=== PATIENT | male | born 1995 | race Caucasian/White ===

== ENCOUNTER 2017-08-28 14:32 | Inpatient (IN) | payer BC, OTHER ==
[~2017-08-28] VITALS: Ht 180.3 cm; Wt 131.5 kg
--- NOTE | 2017-08-28 16:31 | NUR ---
Intake assessment; Patient is a 22 year old male, AOX4, presented to [facility] to detoxify from ETOH and methamphetamine. Patient appears to be very anxious, flushed and agitated. Admitting vital signs are as follows; BP 159/107, HR 98, Temperature 97.8, respirations 20 and SPo2 of 98% on room air. Educated patient regarding unit protocols and policies, patient verbalized understanding. MD was notified regarding patient's vital signs. MD to evaluate patient.
[2017-08-28] MEDS ORDERED: LISI-603 PO (16:48)
[2017-08-28] MEDS ORDERED: FLUO-120 PO (16:48)
[2017-08-28 17:32] LABS: *AMPHETAMINE, URINE NEGATIVE (NEGATIVE); *BARBITURATE, URINE NEGATIVE (NEGATIVE); *CANNABINOID, URINE NEGATIVE (NEGATIVE); *COCCAINE, URINE NEGATIVE (NEGATIVE); *OPIATE, URINE NEGATIVE (NEGATIVE); *PHENCYCLIDINE SCREEN,URINE NEGATIVE (NEGATIVE)
[2017-08-28] MEDS ORDERED: DICYCLOMINE HCL 20 MG TABLET PO PRN (17:45)
[2017-08-28] MEDS ORDERED: MAG HYDROX/AL HYDROX/SIMETH 30 ML LIQUID UDC PO PRN (17:45)
[2017-08-28] MEDS ORDERED: hydrALAZINE HCL 50 MG TABLET PO PRN (17:45)
[2017-08-28] MEDS ORDERED: IBUPROFEN 400 MG TABLET PO PRN (17:45)
[2017-08-28] MEDS ORDERED: THIAMINE HCL 200 MG/2 ML VIAL IM ONE (17:45)
[2017-08-28] MEDS ORDERED: MAGNESIUM HYDROXIDE 30 ML LIQUID UDC PO PRN (17:45)
[2017-08-28] MEDS ORDERED: LORAZEPAM 2 MG/1 ML VIAL IM PRN (17:45)
[2017-08-28] MEDS ORDERED: LORAZEPAM 1 MG TABLET PO PRN ×2 (17:45)
[2017-08-28] MEDS ORDERED: LOPERAMIDE HCL 2 MG CAPSULE PO PRN ×2 (17:45)
[2017-08-28] MEDS ORDERED: MIRALAX 17 GM POWD.PACK PO PRN (17:45)
[2017-08-28] MEDS ORDERED: ACETAMINOPHEN 325 MG TABLET PO PRN (17:45)
[2017-08-28] MEDS ORDERED: HYDROXYZINE PAMOATE 25 MG CAPSULE PO ONE (18:00)
[2017-08-28] MEDS ORDERED: LISINOPRIL 10 MG TABLET PO ONE (18:00)
--- NOTE | 2017-08-28 18:36 | NUR ---
Admission note; Patient is a 22 year old male, AOX4, presented to [facility] to detoxify from ETOH and methamphetamine. Patient denies any allergies or history of seizures. Patient appears to be very anxious, flushed and agitated. Admitting vital signs are as follows; BP 159/107, HR 98, Temperature 97.8, respirations 20 and SPo2 of 98% on room air. Patient has never been to detox treatment before. Educated patient regarding unit protocols and policies, patient verbalized understanding. Discussed substance use history. Patient started drinking when he was 16 years old. Patient reported that for the past 2 years he has been drinking beer/mixed drinks on a daily basis, unable to specify exact amount of alcohol consumption. Last consumed 2 hours prior to admission, 8 bottles of beer. Patient also reported using Methamphetamine on an intermittent basis only, unable to specify amount of methamphetamine used. Discussed medical and psychiatric history. Patient reported history of hypertension but patient has been non compliant with medication regime, patient has a prescription of Lisinopril 20mg PO daily. Patient also reported history of anxiety and gall bladder removal last month. Patient's primary care physician is Dr. Jazmyne Patterson. Skin check done , no open wounds noted, old scabs noted on patients bilateral foot, sites intact. Patient was seen and evaluated by MD at intake office. Oriented patient to unit by BILLING MACHINE OPERATOR. All safety measures secured. Will continue to monitor patient.
--- NOTE | 2017-08-28 18:41 | NUR ---
End of shift note; Patient is AOX4. Patient received Vitamin B1 IM, Prinivil 10mg PO one time dose for high BP 150/107 and Vistaril 25mg PO one time dose for anxiety. Patient remained compliant with treatment plan and medication regime. All safety measures secured. Met all needs. Addendum: 08/28/17 at 1845 by MARCI DUMONT LVN Admitting CIWA is 3.
--- NOTE | 2017-08-28 19:15 | NUR ---
Start of Shift Note: Patient is a 22 y.o male admitted today for ETOH dependence. Patient reported drinking unspecified amount of ETOH for 2 years and Meth intermittently in an unspecified amount . Patient has PMHx of Anxiety & Hypertension. No seizure history noted. Patient is on a regular diet with no known food and drug allergies. Full Code status. Closed scabs noted on both foot. Patient placed on a modified Ativan taper to be started tonight. No PRn medications given during day shift. Last CIWA 3. Patient is alert & oriented x4. Educated patient regarding plan of care for the night. Encourage pt to increase fluid intake. Safety precaution in place. Bed locked in lowest position. Both side rails up. Call light within pt's reach. Will continue to monitor patient.
[2017-08-28] MEDS: LORAZEPAM 1 MG TABLET PO SCH ×2 (19:37→22:10)
--- NOTE | 2017-08-28 19:39 | NUR ---
PRN Ativan & Motrin Patient presented with moderate anxiety, agitation, sweating, & moderate severe headache. Patient noted with fine tremors. No hallucinations noted. Vitals taken B/P 143/97, MO 104 O2Sat 96%. CIWA 16 noted. Pt medicated with PRN Ativan 2mg and Motrin 400mg as ordered. Will monitor for effectiveness of medication.
[2017-08-28 20:00] VITALS: BP 143/97
--- NOTE | 2017-08-28 20:39 | NUR ---
PRN Reassessment Patient noted with decreased sweating, anxiety and agitation. Pt verbalized slight relief in headache. CIWA 10 noted at this time. Will continue to monitor patient.
[2017-08-28 21:10] LABS: BASOPHILS % (AUTO) 0.5 % (0.0-2.0); EOSINOPHILS % (AUTO) 0.5 % (0.0-7.0); HEMATOCRIT 47.1 % (36.7-47.1); HEMOGLOBIN 16.3 g/dL (12.5-16.3); LYMPHOCYTES # (AUTO) 2.1 K/uL (20.0-40.0); LYMPHOCYTES % (AUTO) 25.4 % (20.5-51.5); MEAN CORPUSCULAR HEMOGLOBIN 29.6 uug (23.8-33.4); MEAN CORPUSCULAR HGB CONC 35 g/dL (32.5-36.3); MEAN CORPUSCULAR VOLUME 85.5 fL (73.0-96.2); MONOCYTES # (AUTO) 0.3 K/uL (2.0-10.0); MONOCYTES % (AUTO) 4.2 % (0.0-11.0); NEUTROPHILS # (AUTO) 5.8 K/uL (1.8-8.9); NEUTROPHILS % (AUTO) 69.4 % (38.5-71.5); PLATELET COUNT (AUTO) 238 K/uL (152-348); WHITE BLOOD COUNT (AUTO) 8.3 K/uL (3.6-10.2)
[2017-08-28 21:15] LABS: BILIRUBIN,TOTAL 0.3 mg/dL (0.2-1.0); CREATININE 0.9 mg/dL (0.6-1.3); MAGNESIUM 1.4 mg/dL (1.8-2.4); POTASSIUM 3.2 mmol/L (3.5-5.1)
[2017-08-28] MEDS ORDERED: POTASSIUM CHLORIDE 20 MEQ TAB.PRT.SR PO ONE (21:30)
[2017-08-28] MEDS ORDERED: MAGNESIUM OXIDE 400 MG TABLET PO ONE (21:30)
[2017-08-29] VITALS (8 sets, daily range): BP systolic 128–144; BP diastolic 78–97
--- NOTE | 2017-08-29 07:02 | NUR ---
End of Shift Note: Patient is a 22 y.o male admitted today for ETOH dependence. Patient has PMHx of Anxiety & Hypertension. No seizure history noted. Patient is on a regular diet with no known food and drug allergies. Full Code status. Closed scabs noted on both foot. Patient started on a modified Ativan taper and tolerating well. No adverse reaction noted. Last CIWA 5. Pt received PRN Ativan 2mg and Motrin and were effective. Pt also received a one time dose of K-dur 40mEQ and Mag Ox 800mg as replacement for K levels of 3.2 and Mg level of 1.4. Closely monitored symptoms of withdrawal. Vitals monitored closely and noted within normal limits. Patient is compliant with medications. Patient remained stable. Patient shows no s/s of distress. Patient slept for a total of 8 hour. Fluid intake 500ml. Encourage pt to increase fluid intake. Voided 1x with no bowel movement. All needs attended & met. Safety measures in place. Will continue to monitor patient.
--- NOTE | 2017-08-29 08:10 | NUR ---
START OF SHIFT NOTE Received report from night nurse, 22 year old male admitted today for ETOH dependence. Patient has PMH of Anxiety & Hypertension. Patient cont with modify Ativan taper. Per endorsement pt was given PRN Motrin/Ativan noted to be effective, last CIWA-5,slept for 8 hours. Patient received awake, alert and oriented x4. Patient was educated regarding plan of care for the day and medication regimen. Safety measures in place. Call light with in reach. Will continue to monitor.
[2017-08-29] MEDS: THIAMINE HCL 100 MG TABLET PO SCH (08:44)
[2017-08-29] MEDS: MULTIVITAMINS,THERAPEUTIC TABLET PO SCH (08:44)
[2017-08-29] MEDS: LORAZEPAM 1 MG TABLET PO SCH ×4 (08:44→20:20)
[2017-08-29] MEDS: LISINOPRIL 20 MG TABLET PO SCH (08:44)
[2017-08-29] MEDS: FOLIC ACID 1 MG TABLET PO SCH (08:44)
[2017-08-29] MEDS ORDERED: TUBERCULIN,PURIF.PROT.DERIV. 5 TU/0.1 ML TEST ID ONE (09:00)
--- NOTE | 2017-08-29 19:05 | NUR ---
END OF SHIFT NOTE Gave report to night nurse, 22 year old male patient started on a 5 day Ativan taper and is tolerating well. Pt remains A/O x4. No acute distress noted throughout shift. S/S of acute withdrawal are managed by ordered medications. Patient remains safe throughout shift. No PRN medications needed or administered throughout shift. Most recent CIWA is 4@ 1600. All needs are attended. Pt endorsed to night nurse in stable condition.
--- NOTE | 2017-08-29 19:50 | NUR ---
START OF SHIFT Received report from day shift nurse. Pt attended a group meeting and returned to his room after. He is a 22 yo male admitted to [facility] on 08/28 for ETOH dependence. He is A&O and ambulatory. NKA, full code status, and on a regular diet. PMH of HTN and anxiety. On admission he reported drinking ETOH unspecified amounts for the past 2 years and using methamphetamine unspecified amounts intermittently for the past 6 years. 5-Day Ativan taper started today. He is anxious with moist skin, facial flushing, and mild tremors. He reports difficulty sleeping. Taper due tonight. Fall and seizure precautions in place. Bed is down with call light in reach.
[2017-08-29] MEDS: CLONIDINE HCL 0.1 MG TABLET PO PRN (22:48)
[2017-08-29] MEDS: diphenhydrAMINE 50 MG CAPSULE PO PRN (22:48)
--- NOTE | 2017-08-29 22:49 | NUR ---
PRN Clonidine and Benadryl Pt reports feeling anxious, restless, and unable to sleep. His skin is moist from sweat. B/P 134/92 and HR 105. PRN Clonidine and Benadryl administered.
--- NOTE | 2017-08-29 23:50 | NUR ---
PRN Clonidine and Benadryl reassessment PRN Clonidine and Benadryl effective. Pt is lying in bed resting with eyes closed. Respirations even and unlabored. B/P 128/81 and HR 85.
[2017-08-30] VITALS (7 sets, daily range): BP systolic 101–158; BP diastolic 65–110
[2017-08-30] MEDS: CLONIDINE HCL 0.1 MG TABLET PO PRN ×2 (05:39→14:32)
--- NOTE | 2017-08-30 05:40 | NUR ---
PRN Clonidine Pt's B/P is 146/92. He is lying in bed resting with eyes closed. Respirations even and unlabored. PRN Clonidine administered.
[2017-08-30 07:08] LABS: HEPATITIS B SURFACE AG Negative (Negative)
--- NOTE | 2017-08-30 07:24 | NUR ---
END OF SHIFT Report provided to day shift nurse. Pt is lying in bed resting. He is a 22 yo male admitted to [facility] on 08/28 for ETOH dependence. He is A&O and ambulatory. NKA, full code status, and on a regular diet. PMH of HTN and anxiety. On admission he reported drinking ETOH unspecified amounts for the past 2 years and using methamphetamine unspecified amounts intermittently for the past 6 years. 5-Day Ativan taper started 08/29. Pt's B/P was elevated. PRN Clonidine x2 and Benadryl administered. Endorsed to day shift for second Clonidine reassessment. Last CIWA was 5. He drank 591mL and slept for 6 hours. Fall and seizure precautions in place. Bed is down with call light in reach.
--- NOTE | 2017-08-30 08:10 | NUR ---
START OF SHIFT: RECEIVED PT A/O X 4. HE PRESENTS WITH GUARDED AFFECT AND ANXIOUS MOOD. HE REPORTS FEELING ANXIOUS AND SHAKY. FINE TREMORS NOTED. CIWA 6. ATIVAN TAPER IN PROGRESS TO MANAGE S/S OF W/D. ENCOURAGED INCREASED FLUIDS TO ASSIST IN FACILITATING DETOX PROCESS. WILL CONTINUE TO MONITOR.
[2017-08-30 08:25] LABS: BILIRUBIN,DIRECT 0.2 mg/dL (0.0-0.2); BILIRUBIN,TOTAL 0.9 mg/dL (0.2-1.0); CREATININE 0.8 mg/dL (0.6-1.3); POTASSIUM 4.2 mmol/L (3.5-5.1); TOTAL PROTEIN, SERUM 6.8 g/dL (6.4-8.2)
[2017-08-30] MEDS: MULTIVITAMINS,THERAPEUTIC TABLET PO SCH (08:44)
[2017-08-30] MEDS: FLUOXETINE HCL 20 MG CAPSULE PO SCH (08:45)
[2017-08-30] MEDS: LORAZEPAM 1 MG TABLET PO SCH ×3 (08:45→20:29)
[2017-08-30] MEDS: THIAMINE HCL 100 MG TABLET PO SCH (08:45)
[2017-08-30] MEDS: FOLIC ACID 1 MG TABLET PO SCH (08:45)
[2017-08-30] MEDS: LISINOPRIL 20 MG TABLET PO SCH (08:45)
--- NOTE | 2017-08-30 13:55 | NUR ---
BP ELEVATED. PT IS ASYMPTOMATIC. PRN CLONIDINE GIVEN.WILL MONITOR EFFECTIVENESS OF PRN MED.
--- NOTE | 2017-08-30 14:55 | NUR ---
CLONIDINE EFFECTIVE. BP 145/94 P 95
--- NOTE | 2017-08-30 18:59 | NUR ---
END OF SHIFT: PT CONTINUES ON ATIVAN TAPER TO MANAGE S/S OF W/D. HE ISOLATED IN ROOM AND SLEPT ON AND OFF MOST OF SHIFT. HE REPORTED FEELING ANXIOUS INTERMITTENTLY. LAST CIWA 5. BP BECAME ELEVATED THIS AFTERNOON. PRN CLONIDINE GIVEN AND EFFECTIVE. PT WAS COMPLIANT WITH INCREASED FLUIDS. WILL PASS SHIFT REPORT TO ONCOMING NIGHT NURSE.
--- NOTE | 2017-08-30 20:00 | NUR ---
Start of Shift Pt is a 22 year old male admitted for ETOH dependence, placed on modified Ativan taper. Pt reported consuming unspecified amount and methamphetamine unspecified amount. PMH: HTN and anxiety. NKA, regular diet, fall/seizure precautions and full code. Upon assessment, pt reports feeling anxious, reports chills with hot/cold throughout body, skin is flushed and noted with moderate sweat, respirations even/unlabored, denies SOB/chest pain, denies n/v/d, medications due, safety measures in place, call light within reach, side rails up x2, bed locked and in low position. Will continue to monitor.
[2017-08-30] MEDS: diphenhydrAMINE 50 MG CAPSULE PO PRN (23:58)
--- NOTE | 2017-08-30 23:58 | NUR ---
PRN Administration Pt requested sleep aid. Benadryl 50mg PRN administered. Safety measures in place, will continue to monitor.
[2017-08-31] VITALS: BP 140/86
--- NOTE | 2017-08-31 00:58 | NUR ---
PRN Reassessment Upon reassessment, pt is sleeping, respirations even/unlabored. Safety measures in place, will continue to monitor.
--- NOTE | 2017-08-31 04:00 | NUR ---
CINDYWA deferred d/t pt sleeping, to assess while pt is awake as ordered. Pt refused to be woken up for 0[address], will continue to monitor.
--- NOTE | 2017-08-31 07:00 | NUR ---
End of Shift Pt is a 22 year old male admitted for ETOH dependence, placed on modified Ativan taper. Pt reported consuming unspecified amount and methamphetamine unspecified amount. PMH: HTN and anxiety. NKA, regular diet, fall/seizure precautions and full code. During shift, pt reported feeling anxious, reports chills with hot/cold throughout body, skin is flushed and noted with moderate sweat scheduled taper medications administered, effective in management of s/s of withdrawal, CIWA 5. Benadryl 50mg PRN administered for sleep. Pt slept for 7 hours, intake of 605 ml PO, voids x2 and stool x0. Safety measures in place, call light within reach, side rails up x2, bed locked and in low position. Endorsed to day shift nurse.
[2017-08-31 07:30] VITALS: BP 155/97
[2017-08-31 07:34] VITALS: BP 140/86
--- NOTE | 2017-08-31 08:00 | NUR ---
START OF SHIFT: RECEIVED PT A/O X 4. HE PRESENTS WITH GUARDED AFFECT AND ANXIOUS MOOD. HE REPORTS FEELING ANXIOUS. CIWA 4 , ATIVAN TAPER IN PROGRESS TO MANAGE S/S OF W/D. ENCOURAGED INCREASED FLUIDS TO ASSIST IN FACILITATING DETOX PROCESS. PT STATES THAT HE WOULD LIKE TO ATTEND GROUP TODAY AND THAT IT REALLY HELPED HIM YESTERDAY WILL CONTINUE TO MONITOR.
[2017-08-31] MEDS: LISINOPRIL 20 MG TABLET PO SCH (08:45)
[2017-08-31] MEDS: LORAZEPAM 1 MG TABLET PO SCH ×3 (08:45→20:06)
[2017-08-31] MEDS: MULTIVITAMINS,THERAPEUTIC TABLET PO SCH (08:45)
[2017-08-31] MEDS: FLUOXETINE HCL 20 MG CAPSULE PO SCH (08:46)
[2017-08-31] MEDS: THIAMINE HCL 100 MG TABLET PO SCH (08:46)
[2017-08-31] MEDS: FOLIC ACID 1 MG TABLET PO SCH (09:10)
[2017-08-31 12:00] VITALS: BP 136/84
--- NOTE | 2017-08-31 14:32 | NUR ---
CLONIDINE 0.1MG @1432 clonidine 0.1mg crushed as I was removing it from package, new 0.1mg removed from pyxis and administered to patient @ 1444, crushed clonidine wasted in pyxis
[2017-08-31] MEDS: CLONIDINE HCL 0.1 MG TABLET PO SCH ×2 (14:57→20:06)
[2017-08-31 16:00] VITALS: BP 138/86
--- NOTE | 2017-08-31 18:36 | NUR ---
End of Shift Pt is a 22 year old male admitted for ETOH dependence, placed on modified Ativan taper. Pt reported consuming unspecified amount and methamphetamine unspecified amount. PMH: HTN and anxiety. NKA, regular diet, fall/seizure precautions and full code. During shift, pt reported feeling anxious, scheduled taper medications administered, effective in management of s/s of withdrawal, CIWA 6. Patient spent most of the day in bed sleeping or resting and did not join in any groups today though he said he would like to tomorrow. call light within reach, side rails up x2, bed locked and in low position.Will Endorse to night cleaner nurse Addendum: 08/31/17 at 1843 by GIA FERNANDEZ RN patient out of room to attend 1844 AA meeting
[2017-08-31 20:00] VITALS: BP 141/92
--- NOTE | 2017-08-31 20:00 | NUR ---
Start of Shift Pt is a 22 year old male admitted for ETOH dependence, placed on modified Ativan taper. Pt reported consuming unspecified amount and methamphetamine unspecified amount. PMH: HTN and anxiety. NKA, regular diet, fall/seizure precautions and full code. Upon assessment, pt reports feeling anxious and restless, hot/cold throughout body, skin is flushed, respirations even/unlabored, denies SOB/chest pain, denies n/v/d, medications due, safety measures in place, call light within reach, side rails up x2, bed locked and in low position. Will continue to monitor.
[2017-08-31] MEDS: GABAPENTIN 300 MG CAPSULE PO SCH (20:06)
[2017-09-01] VITALS: BP 123/84
[2017-09-01] MEDS: diphenhydrAMINE 50 MG CAPSULE PO PRN (01:19)
--- NOTE | 2017-09-01 01:19 | NUR ---
PRN Reassessment Pt requests sleeping aid. Benadryl 50mg PRN administered. Safety measures in place, will continue to monitor. Addendum: 09/01/17 at 0559 by LIZ WEBER RN CORRECTION: PRN ADMINISTRATION
--- NOTE | 2017-09-01 02:19 | NUR ---
Upon reassessment, pt is sleeping, respirations even/unlabored. Safety measures in place, will continue to monitor.
--- NOTE | 2017-09-01 07:00 | NUR ---
End of Shift Pt is a 22 year old male admitted for ETOH dependence, placed on modified Ativan taper. Pt reported consuming unspecified amount and methamphetamine unspecified amount. PMH: HTN and anxiety. NKA, regular diet, fall/seizure precautions and full code. During shift, pt reported feeling anxious and restless, hot/cold throughout body, skin flushed scheduled taper medications administered, effective in management of s/s of withdrawal, CIWA 5. Benadryl 50mg RPN administered for sleep. Pt slept for 5 hours, intake of 1210ml PO, voids x2 and stool x1. Safety measures in place, call light within reach, side rails up x2, bed locked and in low position. Endorsed to day shift nurse.
--- NOTE | 2017-09-01 07:30 | NUR ---
START OF SHIFT Pt 22 y/o male admitted for etoh dependence/ withdrawal. Pt received in room on bed with eyes closed resting, but easily arousable to name. Pt alert and oriented to name, place, and time. Perrla. Skin warm and slightly moist to touch. Respirations even and unlabored. Bilateral hand tremors noted slightly. It was reported that pt slept for 5 hours last night. Bed on lowest position with side rails x2 up for safety. Call light within reach. No distress noted at this time.
[2017-09-01 08:00] VITALS: BP 113/67
[2017-09-01] MEDS: CLONIDINE HCL 0.1 MG TABLET PO SCH ×3 (08:46→20:22)
[2017-09-01] MEDS: GABAPENTIN 300 MG CAPSULE PO SCH ×2 (08:46→20:21)
[2017-09-01] MEDS: FOLIC ACID 1 MG TABLET PO SCH (08:46)
[2017-09-01] MEDS: THIAMINE HCL 100 MG TABLET PO SCH (08:46)
[2017-09-01] MEDS: MULTIVITAMINS,THERAPEUTIC TABLET PO SCH (08:46)
[2017-09-01] MEDS: FLUOXETINE HCL 20 MG CAPSULE PO SCH (08:46)
[2017-09-01] MEDS: LORAZEPAM 1 MG TABLET PO SCH ×2 (08:46→20:21)
[2017-09-01] MEDS: LISINOPRIL 20 MG TABLET PO SCH (08:47)
--- NOTE | 2017-09-01 12:29 | NUR ---
THerapist prompted client to come to group. Client agreed to come to group
[2017-09-01 12:35] VITALS: BP 140/86
[2017-09-01 16:00] VITALS: BP 135/81
--- NOTE | 2017-09-01 18:42 | NUR ---
END OF SHIFT Pt 22 y/o male admitted for ETOH dependence. Pt alert and oriented to name, place, and time. Perrla. Respirations even and unlabored. Skin warm and slightly moist to touch. Bilateral hand tremors noted. Pt with episodes of anxiety this morning. Pt observed mostly in room throughout the morning. Pt attended group activity. Pt was seen by MD today. Pt medication compliant and tolerated well. No ASE noted. Bed on lowest position with side rails x2 up for safety. Call light within reach. No distress noted at this time.
[2017-09-01 20:00] VITALS: BP 127/77
--- NOTE | 2017-09-01 20:00 | NUR ---
Start of Shift Pt is a 22 year old male admitted for ETOH dependence, placed on modified Ativan taper. Pt reported consuming unspecified amount and methamphetamine unspecified amount. PMH: HTN and anxiety. NKA, regular diet, fall/seizure precautions and full code. Upon assessment, pt reports feeling anxious with mild chills throughout body, skin is flushed, respirations even/unlabored, denies SOB/chest pain, denies n/v/d, medications due, safety measures in place, call light within reach, side rails up x2, bed locked and in low position. Will continue to monitor.
[2017-09-01] MEDS ORDERED: PRAZOSIN HCL 1 MG CAPSULE PO SCH (21:00)
[2017-09-02] VITALS: BP 121/86
--- NOTE | 2017-09-02 07:00 | NUR ---
End of Shift Pt is a 22 year old male admitted for ETOH dependence, placed on modified Ativan taper. Pt reported consuming unspecified amount and methamphetamine unspecified amount. PMH: HTN and anxiety. NKA, regular diet, fall/seizure precautions and full code. During shift, pt reported feeling anxious with mild chills throughout body, skin flushed scheduled taper medications administered, CIWA 4. No PRN medications administered during shift. Pt slept for 5 hours, intake of 1000 ml PO, voids x3 and stool x0. Safety measures in place, call light within reach, side rails up x2, bed locked and in low position. Endorsed to day shift nurse.
--- NOTE | 2017-09-02 07:18 | NUR ---
START OF SHIFT Pt 22 y/o male admitted for etoh dependence/ withdrawal. Pt received in room on bed with eyes closed resting, but easily arousable to name. Pt alert and oriented to name, place, and time. Perrla. Skin warm and dry to touch. Respirations even and unlabored. Bilateral hand tremors noted slightly. It was reported that pt slept for 5 hours last night. Bed on lowest position with side rails x2 up for safety. Call light within reach. No distress noted at this time.
[2017-09-02] MEDS: LISINOPRIL 20 MG TABLET PO SCH (08:07)
[2017-09-02] MEDS: GABAPENTIN 300 MG CAPSULE PO SCH ×2 (08:07→21:44)
[2017-09-02] MEDS: CLONIDINE HCL 0.1 MG TABLET PO SCH ×3 (08:07→21:38)
[2017-09-02] MEDS: MULTIVITAMINS,THERAPEUTIC TABLET PO SCH (08:07)
[2017-09-02] MEDS: THIAMINE HCL 100 MG TABLET PO SCH (08:08)
[2017-09-02] MEDS: FOLIC ACID 1 MG TABLET PO SCH (08:08)
[2017-09-02] MEDS: FLUOXETINE HCL 20 MG CAPSULE PO SCH (08:08)
[2017-09-02 08:10] VITALS: BP 110/96
[2017-09-02] MEDS ORDERED: LORAZEPAM 1 MG TABLET PO SCH (09:00)
[2017-09-02 12:15] VITALS: BP 140/88
[2017-09-02] MEDS ORDERED: GABA-534 PO (14:44)
[2017-09-02] MEDS ORDERED: CLON0.1T14 PO (14:44)
[2017-09-02] MEDS ORDERED: DIPH50CA37 PO (14:44)
[2017-09-02] MEDS ORDERED: LISI-603 PO (14:44)
--- NOTE | 2017-09-02 16:59 | NUR ---
ENDORSEMENT Endorsed pt to nurse. All information given. No distress noted at this time.
[2017-09-02 17:02] VITALS: BP 117/68
[2017-09-02 20:00] VITALS: BP 146/87
--- NOTE | 2017-09-02 20:00 | NUR ---
START OF SHIFT NOTE RECEIVED REPORT FROM DAY SHIFT NURSE. PATIENT IS A 22 YEAR OLD MALE ADMITTED FOR ETOH DEPENDENCE. PATIENT COMPLETED MODIFIED ATIVAN TAPER. PATIENT IS MEDICALLY CLEARED TO BE DISCHARGE TOMORROW. PMH OF HYPERTENSION AND ANXIETY. NO SEIZURE HISTORY. FIRST TIME IN DETOX. PATIENT DID NOT REQUIRE ANY PRN MEDICATION . LAST CIWA 2. RECEIVED PATIENT IN THE ROOM, ALERT AND ORIENTED X 4. PATIENT STATE HES GOOD BUT HE MISSES HIS DAD . ON FALL/SEIZURE PRECAUTION. SAFETY MEASURES IN PLACE. CALL LIGHT IN REACH. WILL CONTINUE TO MONITOR.
[2017-09-02] MEDS: diphenhydrAMINE 50 MG CAPSULE PO PRN (21:38)
--- NOTE | 2017-09-02 21:38 | NUR ---
PRN BENADRYL ADMINISTRATION PATIENT REQUESTS FOR SLEEP AID. WILL MONITOR FOR EFFECTIVENESS
[2017-09-03] VITALS: BP 128/72
--- NOTE | 2017-09-03 01:00 | NUR ---
GARCIA TABOR RE-ASSESSMENT PATIENT IN BED WITH HIS EYES CLOSED. RESPIRATION EVEN AND UNLABORED. SAFETY MEASURES IN PLACE. CALL LIGHT IN REACH. WILL CONTINUE TO MONITOR.
--- NOTE | 2017-09-03 07:15 | NUR ---
END OF SHIFT NOTE PATIENT SLEPT 4 HOURS. FLUID INTAKE 1,010 ML. VOIDED X 1. NO BM. PATIENT COMPLETED MODIFIED ATIVAN TAPER, TOLERATED WELL. PATIENT IS MEDICALLY CLEARED TO BE DISCHARGE TODAY. PATIENT COMPLIANT WITH MEDICATION AND TREATMENT PLAN. PATIENT WAS GIVEN PRN BENADRYL FOR SLEEP . LAST CIWA 0. ON FALL/SEIZURE PRECAUTION. SAFETY MEASURES IN PLACE. CALL LIGHT IN REACH. WILL CONTINUE TO MONITOR. LAST CIWA 0.
--- NOTE | 2017-09-03 07:33 | NUR ---
START OF SHIFT NOTE: Received report from package line relief operator nurse.Pt is a 22 year old male admitted for ETOH dependence, completed a modified Ativan taper. To be discharged this AM. Pt is alert and oriented X4. Color good, skin warm and dry. Respirations even and unlabored. Safety precautions observed. Call light within reach.
[2017-09-03] MEDS: CLONIDINE HCL 0.1 MG TABLET PO SCH (08:04)
[2017-09-03] MEDS: FOLIC ACID 1 MG TABLET PO SCH (08:05)
[2017-09-03] MEDS: GABAPENTIN 300 MG CAPSULE PO SCH (08:05)
[2017-09-03 08:06] VITALS: BP 110/72
[2017-09-03] MEDS: MULTIVITAMINS,THERAPEUTIC TABLET PO SCH (08:06)
[2017-09-03] MEDS: FLUOXETINE HCL 20 MG CAPSULE PO SCH (08:06)
[2017-09-03] MEDS: LISINOPRIL 20 MG TABLET PO SCH (08:06)
[2017-09-03] MEDS: THIAMINE HCL 100 MG TABLET PO SCH (08:06)
--- NOTE | 2017-09-03 08:10 | NUR ---
VSS Discharge papers and medication bags signed.
--- NOTE | 2017-09-03 09:35 | NUR ---
Pt discharged in stable condition with all valuables, belongings and home meds. Denies SI/HI. To Able to Change via [employer] private car.
== END 2017-09-03 09:57 | disposition other institution (70) | DRG 895 ==
LOC: SRC 16:08
PROVIDERS: ADMIT Internal Medicine; ATTEND Internal Medicine
PROC: HZ2ZZZZ Detoxification Services for Substance Abuse Treatment (ICD-10-PCS; principal; 2017-08-28)
PROC: HZ41ZZZ Group Counseling for Substance Abuse Treatment, Behavioral (ICD-10-PCS; 2017-09-01)
DX: F10.230 Alcohol dependence with withdrawal, uncomplicated (principal); K70.10 Alcoholic hepatitis without ascites; I15.9 Secondary hypertension, unspecified; E83.42 Hypomagnesemia; F33.1 Major depressive disorder, recurrent, moderate; Z68.41 Body mass index [BMI] 40.0-44.9, adult; F17.210 Nicotine dependence, cigarettes, uncomplicated; Y90.3 Blood alcohol level of 60-79 mg/100 ml; Z90.49 Acquired absence of other specified parts of digestive tract; Z83.3 Family history of diabetes mellitus; Z82.49 Family history of ischemic heart disease and other diseases of the circulatory system; Z81.1 Family history of alcohol abuse and dependence; Z91.89 Other specified personal risk factors, not elsewhere classified; G47.00 Insomnia, unspecified; F41.9 Anxiety disorder, unspecified; E66.9 Obesity, unspecified; Z71.3 Dietary counseling and surveillance; E87.6 Hypokalemia; E88.09 Other disorders of plasma-protein metabolism, not elsewhere classified; J02.9 Acute pharyngitis, unspecified; F15.10 Other stimulant abuse, uncomplicated; Z79.899 Other long term (current) drug therapy; F13.90 Sedative, hypnotic, or anxiolytic use, unspecified, uncomplicated
CPT/HCPCS: 36415; 70030-TC; 80307; 83735; 85025; 86403; 86580; 86592; 86705; 86803; 87070; 87340; 87400; 87806; A4663; G0480; J3411; Q0163

== ENCOUNTER 2018-02-23 13:18 | Emergency (ER) | payer BC, OTHER ==
[~2018-02-23] VITALS: Ht 180.3 cm; Wt 136.1 kg
[~2018-02-23 13:18] MED LIST: CLON0.1T14 PO; DIPH50CA37 PO; FLUO-120 PO; GABA-534 PO; LISI-603 PO
[2018-02-23] MEDS ORDERED: FLUO20CA36 PO (13:35)
[2018-02-23] MEDS ORDERED: LISI-603 PO (13:35)
--- NOTE | 2018-02-23 14:06 | NUR ---
PT IS IN ROOM #2B. DR FLYNN EVALUATED THE PT.
[2018-02-23] MEDS ORDERED: LORAZEPAM 0.5 MG TABLET PO ONE (14:15)
--- NOTE | 2018-02-23 14:29 | NUR ---
PT REFUSED MEDICATION. DR FLYNN TALKED TO THE PT. PT WAS D/C TO HOME. D/C INSTRUCTIONS GIVEN TO THE PT BY DR FLYNN.
[2018-02-23 14:36] VITALS: BP 132/81
== END 2018-02-23 15:15 | disposition home or self-care (01) ==
LOC: ER 13:19
DX: F41.9 Anxiety disorder, unspecified (principal); Z90.49 Acquired absence of other specified parts of digestive tract; F11.10 Opioid abuse, uncomplicated; F12.10 Cannabis abuse, uncomplicated; F15.10 Other stimulant abuse, uncomplicated; Z79.899 Other long term (current) drug therapy
CPT/HCPCS: 99284; A4663